=== PATIENT | female | born 1970 | race African-American/Black ===

== ENCOUNTER 2018-02-27 10:20 | Emergency (ER) | payer BC ==
[~2018-02-27] VITALS: Ht 165.1 cm; Wt 99.8 kg
[2018-02-27] MEDS ORDERED: LEVOCETIRIZINE D5 MG (10:25)
== END 2018-02-27 13:39 | disposition home or self-care (01) ==
LOC: ER 10:20
DX: J45.998 Other asthma (principal); J06.9 Acute upper respiratory infection, unspecified